=== PATIENT | male | born 1955 | race Caucasian/White ===

== ENCOUNTER 2021-01-02 19:33 | Emergency (ER) | payer MEDICARE ==
[~2021-01-02] VITALS: Ht 175.3 cm; Wt 85.2 kg
--- NOTE | 2021-01-02 19:51 | NUR ---
Pt sitting at edge of [facility], says feels better in that position. Pt with hx of cervical surgery with hardware in 2016. No new injury but reports increase in pain and bilat arm numbness and tingling. Pt has a CD of recent xray in his hands. Denies seeing any neurosurgeon in town. AIDET provided.
--- NOTE | 2021-01-02 20:21 | NUR ---
ERP evaluated pt, no new orders. Will continue to monitor. AIDET provided.
[2021-01-02 20:39] VITALS: BP 178/91
--- NOTE | 2021-01-02 20:54 | NUR ---
DC papers to pt, pt verbalizes understanding of f/u. Pt xray returned back to him.
== END 2021-01-02 21:00 | disposition home or self-care (01) ==
LOC: ED 20:38
DX: G89.29 Other chronic pain (principal); M54.2 Cervicalgia
CPT/HCPCS: 99281

== ENCOUNTER → 2021-02-28 | Outpatient (CLI) | payer MEDICARE ==
[~2021-02-28] MED LIST: ALPR1TAB2 PO
== END | disposition home or self-care (01) ==
LOC: RAD 09:05
PROVIDERS: ATTEND Neurological Surgery
DX: M50.30 Other cervical disc degeneration, unspecified cervical region (principal); M48.02 Spinal stenosis, cervical region; M25.78 Osteophyte, vertebrae
CPT/HCPCS: 72050; 72125; 72141